=== PATIENT | female | born 1980 | race Caucasian/White ===

== ENCOUNTER 2021-07-25 07:50 | Emergency (ER) | payer BC, MEDICAID ==
[~2021-07-25] VITALS: Ht 165.1 cm; Wt 119.0 kg
[2021-07-25 08:11] VITALS: BP 185/79
--- NOTE | 2021-07-25 08:47 | PHYS DOC ---
Past History Past Surgical History: Tonsillectomy Additional Past Surgical Histo: nose surgery, wisdom teeth, D&C Alcohol Use: None Adult General Chief Complaint Chief Complaint: FINGER INJURY HPI HPI The patient is a 41-year-old female who presents for evaluation of left fourth finger pain and swelling distally after dropping a block of ice on her fingertip earlier this morning. No other injury during the episode. No therapy prior to arrival. Review of Systems Review of Systems A 12 point review of systems was completed and was negative except where noted in HPI above. Allergies Allergies Allergies Uncoded Allergies Type Severity Reaction Last Updated Verified artificial grape Allergy Unknown Unknown 07/25/21 Physical Exam Physical Exam 41-year-old female appearing nontoxic and in no acute distress. Head is normocephalic and atraumatic. Neck is supple and nontender. Oropharynx is moist. Lungs are clear to auscultation at all stations. There is a normal S1 and S2 without rubs or gallops and capillary refill is appropriate, less than 2 seconds globally. Abdomen is soft, nontender nondistended. Skin is warm and dry without cyanosis, clubbing or edema. Psychiatrically, the patient demonstrates appropriate mood and affect and is alert. Evaluation of the left upper extremity is remarkable for mild tenderness and swelling distal to the DIP joint with no significant discomfort with ranging at the DIP, PIP, MCP or at any other joints of the right upper extremity. No subungual hematoma. Right upper extremity including the fingertip in question is neurovascularly intact distally with strength out of 5, sensation intact light touch in all nerve distributions, radial pulse 2+, capillary refill less than 2 seconds, hand warm and well- perfused. Current Patient Data Vital Signs Vital Signs Date Time Temp Pulse Resp B/P (MAP) Pulse Ox O2 Delivery O2 Flow Rate FiO2 07/25/21 08:11 97.9 87 18 185/79 (114) 97 Room Air EKG EKG [] Radiology/Procedures Radiology/Procedures XR fingers L: No acute fracture or dislocation imaged per EP interpretation. Formal radiology interpretation is to follow. [] Heart Score C/O Chest Pain: No Risk Factors: Risk Factors: DM, Current or recent (<one month) smoker, HTN, HLP, family history of CAD, obesity. Risk Scores: Risk Factors: DM, Current or recent (<one month) smoker, HTN, HLP, family history of CAD, obesity. Course & Med Decision Making Course & Med Decision Making Patient declines any anti-inflammatory medication. Will obtain plain films and will then reevaluate. 0902: No evidence of fracture or dislocation. Will place in volar finger splint for comfort and will have patient rest, ice, elevate and take nonsteroidal anti-inflammatories for symptom management. She is to follow-up closely with primary care in the next 2 to 4 days and to return to the emergency department right away if symptoms worsen or if other new symptoms of concern develop. All questions are answered. Dragon Disclaimer Dragon Disclaimer This electronic medical record was generated, in whole or in part, using a voice recognition dictation system. Departure Departure: Impression: Primary Impression: Contusion of finger of left hand Disposition: HOME / SELF CARE / HOMELESS Condition: STABLE Patient Instructions: Contusion Additional Instructions: Follow-up very closely with your primary care doctor in the office in the next 2 to 4 days for a reevaluation of your symptoms and a discussion of next best steps in care. Drink plenty of fluids to stay hydrated and get plenty of rest. Rest, ice and elevate your injured finger. You may wear the splint for comfort and support but as the finger feels better it is okay to take the splint off and to move the finger as much as you would like to. Take a 600 mg ibuprofen pill every 6 hours as needed for discomfort. Take with food to prevent stomach upset. Return to the emergency department right away for worsening symptoms of any kind or with any other new symptoms of concern. Scripts Ibuprofen (Ibu) 600 Mg Tablet 1 TAB PO Q6HRS for pain for 7 Days, #28 TAB 0 Refills Prov: ESTEVAN HUYNH MD 07/25/21 Problem Qualifiers Primary Impression: Contusion of finger of left hand Encounter type: initial encounter Finger: ring finger Damage to nail status: without damage Qualified Codes: S60.042A - Contusion of left ring finger without damage to nail, initial encounter ESTEVAN HUYNH MD Jul 25, 2021 08:47
--- NOTE | 2021-07-25 09:03 | RAD ---
XR FINGER(S)_LEFT 2+VIEWS_RT History: Reason: injury, SMASHED TIP OF 4TH FINGER / Spl. Instructions: PATIENT HAS A HOOP ATTACHED T O HER FINGERNAIL. / History: . Pain Technique: AP view the hand and 2 additional views of the fourth digit. Comparison: None. Findings: No dislocation. No acute fracture. Metallic jewelry within the fourth digit nail. Impression: 1. No acute osseous abnormality. Electronically signed by: Meir Middleton DO (07/25/2021 9:00 AM) [id number]
[2021-07-25] MEDS ORDERED: IBUP-571 PO (09:05)
== END 2021-07-25 09:28 | disposition home or self-care (01) ==
LOC: ER 07:50
DX: S60.042A Contusion of left ring finger without damage to nail, initial encounter (principal); Z88.8 Allergy status to other drugs, medicaments and biological substances; W20.8XXA Other cause of strike by thrown, projected or falling object, initial encounter; Y93.89 Activity, other specified; Y92.89 Other specified places as the place of occurrence of the external cause; Y99.8 Other external cause status
CPT/HCPCS: 29130; 73140; 99283